=== PATIENT | male | born 2000 | race Caucasian/White ===

== ENCOUNTER 2018-06-10 02:51 | Emergency (ER) | payer SELFPAY ==
[~2018-06-10] VITALS: Ht 172.7 cm; Wt 63.0 kg
[2018-06-10 04:17] LABS: IMMATURE GRANULOCYTES 0.3 % (0.0-5.0); MEAN CORPUSCULAR HGB 30.9 pG CALC (26.0-32.0); MEAN CORPUSCULAR HGB CONC 33.3 g/L CALC (32.0-36.0); NEUT# 8.19 thou/uL (1.82-7.42); RED BLOOD COUNT 5.4 mill/uL (4.70-6.10); RED CELL DISTRI WIDTH 13.1 % (11.5-15.5); URINE BLOOD DIPSTICK NEGATIVE (NEGATIVE); URINE COLOR YELLOW; URINE GLUCOSE - DIPSTICK NEGATIVE (NEGATIVE); URINE KETONE 15 mg/dL (NEGATIVE); URINE LEUK ESTERASE NEGATIVE (NEGATIVE); URINE NITRITE - DIPSTICK NEGATIVE (Negative); URINE PROTEIN - DIPSTICK 30 mg/dL (NEG-TRACE); URINE SPECIFIC GRAVITY >=1.030
[2018-06-10 04:18] LABS: HEMATOCRIT 50.2 % (39.0-50.0); HEMOGLOBIN 16.7 g/dl (14.0-18.0)
[2018-06-10 04:25] LABS: BARBITURATES NEGATIVE (NEGATIVE); COCAINE NEGATIVE (NEGATIVE); METHADONE NEGATIVE (NEGATIVE); OXCYCODONE NEGATIVE (NEGATIVE); TETRAHYDROCANNABIONOL POSITIVE (NEGATIVE); TRICYLIC ANTIDEPRESSANTS NEGATIVE (NEGATIVE); URINE BILIRUBIN - DIPSTICK NEGATIVE (NEGATIVE)
[2018-06-10 04:29] LABS: ALBUMIN 4.7 g/dL (3.2-5.0); AMYLASE 38 u/l (30-110); BILIRUBIN, TOTAL 0.7 mg/dL (0.0-1.4); BUN 9 mg/dL (9-20); BUN/CREATININE RATIO 11 (12-20 (CALC)); CARBON DIOXIDE 27 mmol/l (22-30); CHLORIDE 99 mmol/l (95-108); CREATININE 0.8 mg/dL (0.7-1.3); GFR > 60 ML/MIN (>=60 (CALC)); GFR FOR AFR.AMER. > 60 ML/MIN (>=60 (CALC)); LIPASE 37 u/l (23-300); SGOT/AST 29 u/l (17-59); SODIUM 138 mmol/l (137-146); TOTAL PROTEIN 7.8 g/dL (6.3-8.2)
[2018-06-10 04:32] LABS: ALKALINE PHOSPHATASE 63 u/l (38-126); ANION GAP 16 (6-22 (CALC)); POTASSIUM 3.9 mmol/l (3.5-5.1)
[2018-06-10 04:37] LABS: URINE MUCUS MANY hpf (NONE-FEW); URINE RBC 0-2 RBC/hpf (0-5); URINE SQUAMOUS EPITHELIAL CELL FEW EPI/hpf (0-FEW); URINE WBC 0-2 WBC/hpf (0-5)
[2018-06-10 04:40] LABS: MYOGLOBIN 34 ng/mL (0 - 121)
[2018-06-10] MEDS ORDERED: NAPROSYN500 MG PO ×2 (05:01→05:23)
[2018-06-10 05:25] VITALS: BP 129/91
== END 2018-06-10 05:25 | disposition home or self-care (01) | DRG 313 ==
LOC: ED 02:51
PROVIDERS: Emergency Medicine
DX: R07.89 Other chest pain (principal); F17.210 Nicotine dependence, cigarettes, uncomplicated

== ENCOUNTER 2022-04-05 22:13 | Emergency (ER) | payer OTHER ==
[~2022-04-05] VITALS: Ht 182.9 cm; Wt 77.2 kg
[~2022-04-05 22:13] MED LIST: NAPROSYN500 MG PO
[2022-04-05 22:33] VITALS: BP 116/77
[2022-04-05 22:45] VITALS: BP 124/81
[2022-04-05 23:00] VITALS: BP 110/79
[2022-04-05 23:16] VITALS: BP 122/86
[2022-04-05 23:30] VITALS: BP 116/84
[2022-04-05 23:37] VITALS: BP 116/84
== END 2022-04-05 23:53 | disposition home or self-care (01) | DRG 125 ==
LOC: ED 22:13
DX: S01.112A Laceration without foreign body of left eyelid and periocular area, initial encounter (principal); V43.52XA Car driver injured in collision with other type car in traffic accident, initial encounter